=== PATIENT | female | born 1990 | race Caucasian/White ===

== ENCOUNTER → 2017-02-13 | Outpatient (CLI) | payer OTHER ==
--- NOTE | 2017-02-13 18:01 | WOMENS IMAGING REPORT ---
EXAM DESCRIPTION: U/S BREAST UNILAT LIMITED COMPLETED DATE/TIME: 02/13/2017 7:23 am REASON FOR STUDY: UNSPECIFIED LUMP IN UNSPECIFIED BREAST N63.0 UNSPECIFIED LUMP IN UNSPECIFIED JANESSA AST COMPARISON: None. TECHNIQUE: Real-time and static grayscale imaging performed of the left breast targeted to the area of clinical concern. Selected color Doppler images recorded. LIMITATIONS: None. FINDINGS: Patient indicates a palpable abnormality in the left breast laterally at the 3 o'clock pos ition. Ultrasound of this area demonstrates a well-circumscribed hypoechoic solid nodule with good acoustic through transmission and minimal internal color flow. This mass measures 5.5 x 5.2 x 2.3 cm in size. This likely represents a fibroadenoma. This has a benign imaging appearance. However, if this palpable mass is rapidly growing, recommend u ltrasound-guided core biopsy to exclude phylloides tumor. IMPRESSION: Palpable abnormality correlates with a well-circumscribed solid mass, likely a fibroaden alan. BIRAD: 2 Benign findings. RECOMMENDATION: RECOMMENDED FOLLOW-UP: Follow-up as clinically indicated. This is most likely a benign fibroadenoma. However, if this mass is rapidly growing, recommend ultra sound-guided core biopsy to exclude phylloides tumor. COMMENT: [employer] ([employer]) has developed recommendations for screening MRI of the breasts in certain patient populations, to be used in conjunction with mammography. Breast MRI s urveillance may be appropriate for women with more than 20% lifetime risk of developing breast cancer as determined by genetic testing, significant family history of the disease, or history of mantle r adiation for Hodgkins Disease. ACR Practice Guidelines 2008. TECHNICAL DOCUMENTATION: JOB ID: [id number] [employer]- All Rights Reserved
== END ==
LOC: WI 07:00
PROVIDERS: ATTEND Physician Assistant
DX: N63.20 Unspecified lump in the left breast, unspecified quadrant (principal)
CPT/HCPCS: 76642

== ENCOUNTER → 2018-08-13 | Outpatient (CLI) | payer OTHER ==
--- NOTE | 2018-08-13 08:43 | WOMENS IMAGING REPORT ---
EXAM DESCRIPTION: U/S EXTREMITY NONVASCULAR COMP COMPLETED DATE/TIME: 08/13/2018 7:33 am REASON FOR STUDY: N63.31 UNSPECIFIED LUMP IN AXILLARY TAIL OF THE RIGHT BREAST N63.31 UNSPECIFIED L UMP IN AXILLARY TAIL OF THE RIGHT BREAST COMPARISON: None. TECHNIQUE: Dynamic and static grayscale images acquired of the localized site of clinical concern an d recorded on PACS. Additional selected color Doppler and spectral images recorded. SITE OF CONCERN: Right Axilla LIMITATIONS: None. FINDINGS: In the right axilla, two lymph nodes are identified which measures 7 x 4 x 5 mm and 7 x 5 x 5 mm. A hilus of fat is demonstrated within each node and some peripheral blood flow. These findi ngs correlate to the clinically palpable area. These findings may be on a reactive basis. The patie nt is 7-8 months . IMPRESSION: 1. Two lymph nodes are identified in the right axilla, correlating to the clinically pa lpable area. These findings may be on a reactive basis. Correlation suggested. TECHNICAL DOCUMENTATION: JOB ID: [id number] [employer]- All Rights Reserved Reading location - IP/workstation name: [email or web address]
== END ==
LOC: WI 06:54
PROVIDERS: ATTEND Obstetrics & Gynecology
DX: N63.31 Unspecified lump in axillary tail of the right breast (principal)
CPT/HCPCS: 76881